=== PATIENT | male | born 1980 | race Caucasian/White ===

== ENCOUNTER 2022-04-28 16:25 | Emergency (ER) | payer OTHER ==
[~2022-04-28] VITALS: Ht 172.7 cm; Wt 73.0 kg
[2022-04-28 16:33] VITALS: BP 135/84
[2022-04-28] MEDS ORDERED: HALOPERIDOL LACTATE 5MG/ML VIAL IM STA (16:54)
[2022-04-28] MEDS ORDERED: LORAZEPAM 2MG/ML CPJ IM STA (16:54)
[2022-04-28] MEDS ORDERED: TETANUS, DIPHTHERIA, PERTUSSIS VAC/PF 0.5ML (>10YR OLD) IM ONE (17:00)
== END 2022-04-28 18:53 | disposition home or self-care (01) ==
LOC: ER 16:25
DX: S00.211A Abrasion of right eyelid and periocular area, initial encounter (principal); F41.9 Anxiety disorder, unspecified; F20.9 Schizophrenia, unspecified; R45.851 Suicidal ideations; X83.8XXA Intentional self-harm by other specified means, initial encounter; Y93.89 Activity, other specified; Y92.810 Car as the place of occurrence of the external cause
CPT/HCPCS: 90715; 99284